=== PATIENT | male | born 1970 | race Caucasian/White ===

== ENCOUNTER 2018-06-28 13:35 | Emergency (ER) | payer SELFPAY ==
[~2018-06-28] VITALS: Ht 162.6 cm; Wt 63.6 kg
[~2018-06-28 13:35] MED LIST: FLEXERIL PO; METHOCARBAM500 MG PO; MOTRIN400 MG/TAB PO; NAPROXEN500 MG PO; NO MEDS; SOMA350 MG PO; ULTRAM50 M1 PO; ULTRAM50 MG PO
[2018-06-28] MEDS ORDERED: CEPHALEXIN500 M1 PO (16:26)
[2018-06-28] MEDS ORDERED: HYDROCO/APAP1 TA9 PO (16:26)
[2018-06-28] MEDS ORDERED: MOTRIN400 MG PO (16:26)
[2018-06-28 16:41] VITALS: BP 146/96
== END 2018-06-28 16:58 | disposition home or self-care (01) | DRG 563 ==
LOC: ED 13:35
PROC: 0HQ1XZZ Repair Face Skin, External Approach (ICD-10-PCS; principal; 2018-06-28)
PROC: 2W3GX1Z Immobilization of Right Thumb using Splint (ICD-10-PCS; 2018-06-28)
PROC: 2W3CX1Z Immobilization of Right Lower Arm using Splint (ICD-10-PCS; 2018-06-28)
PROC: 0RSNXZZ Reposition Right Wrist Joint, External Approach (ICD-10-PCS; 2018-06-28)
DX: S52.501A Unspecified fracture of the lower end of right radius, initial encounter for closed fracture (principal); S01.81XA Laceration without foreign body of other part of head, initial encounter; W11.XXXA Fall on and from ladder, initial encounter; Y93.89 Activity, other specified; Y92.009 Unspecified place in unspecified non-institutional (private) residence as the place of occurrence of the external cause